=== PATIENT | male | born 1945 | race Caucasian/White ===

== ENCOUNTER 2019-12-14 20:26 | Emergency (ER) | payer OTHER ==
[2019-12-14 20:49] VITALS: TEMP 97.2; BMI 24.3
--- NOTE | 2019-12-14 21:37 | PDOC ---
History of Present Illness - General Chief Complaint: Alcohol intoxication Stated Complaint: INTOX Time Seen by Provider: 12/14/19 21:36 - History of Present Illness Initial Comments: 12/14/19 22:02 74 yo F no PMH (does not see doctors), presenting with alcohol intoxication. Patient was lying on the ground and a bystander called EMS. Reports that he had drank his usual 7 shots of cognac and couldn't get up because he was drunk. Patient denies any complaints. Specifically denies CP, SOB, abd pain, fevers/ chills, AUGUSTINE, N/V. Past History - Past Medical History Allergies/Adverse Reactions: Allergies Allergy/AdvReac Type Severity Reaction Status Date / Time No Known Allergies Allergy Verified 12/14/19 23:34 COPD: No Other medical history: etoh - Psycho Social/Smoking Cessation Hx Smoking History: Unknown if ever smoked Hx Alcohol Use: Yes (currenlty intoxicated) Review of Systems - Review of Systems Comments:: 12/14/19 22:06 GENERAL/CONSTITUTIONAL: denies fever, chills, diaphoresis, generalized weakness , malaise, loss of appetite, weight change HEAD, EYES, EARS, NOSE AND THROAT: endorses sinus congestion. Denies rhinorrhea , nasal congestion, throat pain, throat swelling, difficulty swallowing, mouth swelling, ear pain, eye pain, visual changes NEUROLOGIC: denies headache, focal weakness or paresthesias, dizziness, unsteady gait, seizure, mental status changes, bladder or bowel incontinence CARDIOVASCULAR: denies chest pain, syncope, palpitations, irregular heart rate, lightheadedness, peripheral edema RESPIRATORY: denies cough, shortness of breath, dyspnea with exertion, orthopnea , wheezing, stridor, hemoptysis GASTROINTESTINAL: denies abdominal pain, abdominal distension, nausea, vomiting , diarrhea, constipation, melena, hematochezia GENITOURINARY: denies dysuria, frequency, urgency, hesitancy, hematuria, flank pain, genital pain MUSCULOSKELETAL: denies myalgia, arthralgia, joint swelling, back pain, neck pain SKIN: denies rash, itching, pallor HEMATOLOGIC/IMMUNOLOGIC: denies easy bleeding, easy bruising, lymphadenopathy, frequent infections ENDOCRINE: denies unexplained weight gain, unexplained weight loss, heat intolerance, cold intolerance PSYCHIATRIC: denies anxiety, depression, suicidal or homicidal ideation, hallucinations *Physical Exam - Vital Signs Last Vital Signs Temp Pulse Resp BP Pulse Ox 97.2 F L 84 18 116/72 12/14/19 20:44 12/14/19 20:44 12/14/19 20:44 12/14/19 20:44 - Physical Exam 12/14/19 22:11 Gen: well-developed, well-nourished, appears clinically intoxicated Neuro: AAOX4, CN II-XII intact, FTN intact, EOMI, PERRLA, 5/5 strength, SILT HEENT: atraumatic, normocephalic. Anicteric. No jaundice. Neck: trachea midline, supple CV: regular rate, regular rhythm, no murmurs, rubs, or gallops Pulm: CTA b/l, no wheezing Abd: soft, non-distended, non-tender MSK: full ROM, intact pulses Extr: no edema, no deformities Skin: warm, dry Medical Decision Making - Medical Decision Making 12/14/19 22:04 Patient clinically intoxicated. Will get head CT and cervical CT r/o trauma. 12/14/19 23:[address] without acute pathology, has sinusitis. Likely dc. Discharge - Discharge Information Problems reviewed: Yes Clinical Impression/Diagnosis: Alcohol intoxication Qualifiers: Complication of substance-induced condition: uncomplicated Qualified Code(s): F10.920 - Alcohol use, unspecified with intoxication, uncomplicated Condition: Stable Disposition: HOME - Follow up/Referral - Patient Discharge Instructions Patient Printed Discharge Instructions: DI for Alcohol Abuse Additional Instructions: You were seen in the ER for alcohol intoxication. Your head CT and neck CT were negative - no broken bones in your neck. Please follow up with your primary care provider as soon as possible, in the next 2-3 days. Return to the ER if you develop weakness, tremors, confusion, chest pain, or trouble breathing. - Post Discharge Activity
--- NOTE | 2019-12-14 22:02 | PDOC ---
Attending Attestation - Resident Resident Name: Jerrod Díaz - ED Attending Attestation I have performed the following: I have examined & evaluated the patient, The case was reviewed & discussed with the resident, I agree w/resident's findings & plan - HPI HPI: 12/15/19 23:17 Pt comes with alcohol intox. - Physicial Exam PE: 12/15/19 20:10 Agree with resident exam - Medical Decision Making 12/15/19 03:26 Patient Name: ROSA HERNANDEZ PRELIMINARY REPORT FROM [facility] EXAM: CT brain without contrast DATE: 2019-12-14 22:32:57 IMAGES: 258 HISTORY: Alcohol intoxication IMPRESSION: Intracranial hemorrhage: None. Mass effect: None. Brain parenchyma: No acute process seen. Nasal bone fracture deformity, possibly old. Probable chronic sinusitis. 12/15/19 03:27 Patient Name: ROSA HERNANDEZ PRELIMINARY REPORT FROM [facility] EXAM: CT cervical spine without contrast DATE: 2019-12-14 22:24:38 IMAGES: 284 HISTORY: alcohol IMPRESSION: Subluxations: None. Acute fractures: None. Other findings: Nonspecific ground glass opacities at lung apices. Diffuse degenerative changes seen, with multilevel foraminal narrowing, osteophytes, and disc narrowing. Nonspecific thyroid nodules bilateral.
[2019-12-14] MEDS ORDERED: FOLIC ACID INJECTION - 1 MG, THIAMINE HCL 100 MG, MULTIVIT INJECTION ADULT 10 ML in SOD... IVPB ONE (23:23)
--- NOTE | 2019-12-15 01:45 | PDOC ---
*Physical Exam - Vital Signs Last Vital Signs Temp Pulse Resp BP Pulse Ox 97.2 F L 84 18 116/72 12/14/19 20:44 12/14/19 20:44 12/14/19 20:44 12/14/19 20:44 Medical Decision Making - Medical Decision Making Sign out received from Dr. Díaz. 74M w/no known PMH (not following with physicians) p/w EtOH intoxication found down. Awake, alert, intoxicated. Not interested in detox/rehab at this time. Pending: CT head/cervical spine read Clinical sobriety Dispo: Discharge 12/15/19 01:45 CT head - negative CT cervical spine - negative 12/15/19 05:19 On reassessment, Mr. Herrera is sleeping comfortably. Per nurse he was able to ambulate without assistance to restroom. Plan for AM discharge. 12/15/19 06:34 Clinically sober on reassessment. Ambulating easily without assistance, speaking full sentences, fully alert and oriented. Plan for discharge with PCP follow up. Discharge - Discharge Information Problems reviewed: Yes Clinical Impression/Diagnosis: Alcohol intoxication Qualifiers: Complication of substance-induced condition: uncomplicated Qualified Code(s): F10.920 - Alcohol use, unspecified with intoxication, uncomplicated Condition: Stable Disposition: HOME - Admission No - Follow up/Referral - Patient Discharge Instructions Patient Printed Discharge Instructions: DI for Alcohol Abuse Additional Instructions: You were seen in the ER for alcohol intoxication. Your head CT and neck CT were negative - no broken bones in your neck. Please follow up with your primary care provider as soon as possible, in the next 2-3 days. Return to the ER if you develop weakness, tremors, confusion, chest pain, or trouble breathing. - Post Discharge Activity
[2019-12-15 06:20] VITALS: BP 128/74; PULSE 88
== END 2019-12-15 06:21 | disposition home or self-care (01) ==
LOC: JER 20:26
PROC: 3E033GC Introduction of Other Therapeutic Substance into Peripheral Vein, Percutaneous Approach (ICD-10-PCS; principal; 2019-12-14)
DX: F10.920 Alcohol use, unspecified with intoxication, uncomplicated (principal)
CPT/HCPCS: 70450-TC; 72125-TC; 96365; 96366; 99285-25; J7030

== ENCOUNTER 2020-07-18 20:50 | Emergency (ER) | payer OTHER, BC ==
[2020-07-18 21:01] VITALS: BP 99/67; PULSE 70; TEMP 98.5; BMI 28.0
--- NOTE | 2020-07-18 21:11 | PDOC ---
History of Present Illness - General Chief Complaint: Alcohol intoxication Stated Complaint: FALL/ALCOHOL INTOXICATION Time Seen by Provider: 07/18/20 21:10 History Source: Patient Exam Limitations: No Limitations - History of Present Illness Initial Comments: 07/18/20 21:40 74M with PMH of alcohol abuse presents to the ED via EMS, but the pt was unsure why he was in the ED. He had no complaints. Denied headache, vision changes, numbness/tingling/weakness, nvdc, cp, sob. PMH: as in HPI SH: see below Meds: none Allergies: NKDA Tob/Etoh/Rec drugs: 4-5 drinks of vodka daily, denies tobacco, illicits ROS GENERAL/CONSTITUTIONAL: No fever or chills. No weakness. HEENT: No change in vision. No ear pain or discharge. No sore throat. CARDIOVASCULAR: No chest pain or shortness of breath RESPIRATORY: No cough, wheezing, or hemoptysis. GASTROINTESTINAL: No nausea, vomiting, diarrhea or constipation. GENITOURINARY: No dysuria, frequency, or change in urination. MUSCULOSKELETAL: No joint or muscle swelling or pain. No neck or back pain. SKIN: No rash NEUROLOGIC: No headache, vertigo, loss of consciousness, or change in strength/sensation. ENDOCRINE: No increased thirst. No abnormal weight change HEMATOLOGIC/LYMPHATIC: No anemia, easy bleeding, or history of blood clots. ALLERGIC/IMMUNOLOGIC: No hives or skin allergy. PE GENERAL: Awake, alert, and fully oriented; no acute distress HEAD: abrasion to left occipital region, no laceration EYES: PERRLA, EOMI, sclera anicteric, conjunctiva clear ENT: Auricles normal inspection, hearing grossly normal, nares patent, moist mucosa, oropharynx clear without exudates. NECK: Normal ROM, supple, no LAD, JVD, or masses HEART: Regular rate and rhythm, normal S1/S2, no murmurs, rubs or gallops, dilan pheral pulses normal and equal bilaterally. LUNGS: No distress, speaks full sentences, clear to auscultation bilaterally ABDOMEN: Soft, nontender. No guarding, no rebound. No masses EXTREMITIES: Normal inspection, Normal range of motion, no edema. No clubbing or cyanosis. NEUROLOGICAL: CNII-XII grossly intact (pt wouldn't comply entirely w/ CN testing). Normal speech, no focal sensorimotor deficits. Pt not compliant with cerebellar testing. SKIN: Warm, Dry, normal turgor, no rashes or lesions noted Assessment and Plan 1. r/o intracranial hemorrhage and c-spine fracture with head and c-spine CT 2. tetanus booster Fantasma Pelletier, PGY1 Emergency Medicine Past History - Medical History Allergies/Adverse Reactions: Allergies Allergy/AdvReac Type Severity Reaction Status Date / Time No Known Allergies Allergy Verified 07/18/20 20:58 COPD: No - Psycho-Social/Smoking History Smoking History: Unknown if ever smoked Have you smoked in the past 12 months: No Information on smoking cessation initiated: No - Substance Abuse Hx (Audit-C & DAST Scrn) How often the patient has a drink containing alcohol: 4 0r more times/wk Number of drinks the patient has on a typical day: 5 or 6 How often the patient has six or more drinks on one occasion: Monthly Score: In Men: 4 or > Positive; In Women: 3 or > Positive: 8 Screen Result (Pos requires Nsg. Audit-10AR): Positive In the last yr the pt used illegal drug/Rx for NonMed reason: No Score: Yes response is considered Positive: 0 Screen Result (Positive result requires Nsg. DAST-10): Negative *Physical Exam - Vital Signs Last Vital Signs Temp Pulse Resp BP Pulse Ox 98.5 F 70 20 99/67 96 07/18/20 20:59 07/18/20 20:59 07/18/20 20:59 07/18/20 20:59 07/18/20 20:59 Medical Decision Making - Medical Decision Making 07/18/20 23:19 74M with PMH of alcohol abuse presents to the intoxicated ED via EMS, apparently after a fall, which the patient had no recollection of. He had mild head trauma, and would not fully comply with neurological exam but no focal deficits were noted on exam. -> Will get head and c-spine CT to eval for intracranial hemorrhage or c-spine injury. Given tetanus shot and thiamine. -> d/c home if normal CT and pt is able to ambulate 07/18/20 23:29 Signed out to night team. Discharge - Discharge Information Problems reviewed: Yes Clinical Impression/Diagnosis: Alcohol intoxication Qualifiers: Complication of substance-induced condition: with unspecified complication Qualified Code(s): F10.929 - Alcohol use, unspecified with intoxication, unspecified - Follow up/Referral - Patient Discharge Instructions - Post Discharge Activity
[2020-07-18] MEDS ORDERED: DIPHTH,PERTUSS(ACELL),TET 0.5 ML DISP.SYRIN IM ONE ×2 (22:03→22:35)
--- NOTE | 2020-07-18 22:58 | PDOC ---
Documentation entered by Daily Cope SCRIBE, acting as scribe for Derrick Zepeda MD. Derrick Zepeda MD: This documentation has been prepared by the scribeAnatoliy Ana, SCRIBE, under my direction and personally reviewed by me in its entirety. I confirm that the documentation accurately reflects all work, treatment, procedures, and medical decision making performed by me. Attending Attestation - Resident Resident Name: Fantasma Pelletier - ED Attending Attestation I have performed the following: I have examined & evaluated the patient, The case was reviewed & discussed with the resident, I agree w/resident's findings & plan, Exceptions are as noted - HPI HPI: 07/18/20 21:24 Patient is a 74 year old male with a significant past medical history of alcohol abuse who presents to the ED with Acute alcohol intoxication and minor head trauma. Patient denies nausea/vomiting/weakness/paresthesias. Patient drinks every day. Patient denies: Allergies: NKDA 07/18/20 22:55 - Physicial Exam PE: 07/18/20 22:55 EXAMINATION CONSTITUTIONAL: Awake, alert, +AOB; HEAD: Normocephalic; + minimal occipital abrasions; no crepitu, no step offs EYES: PERRL; EOM intact ENMT: External appears normal; normal oropharynx NECK: Supple; non-tender; no cervical lymphadenopathy CARD: Normal S1, S2; no murmurs, rubs, or gallops RESP: Normal chest excursion with respiration; breath sounds clear and equal bilaterally; no wheezes, rhonchi, or rales ABD: Soft, non-distended; non-tender; no palpable organomegaly, no palpable hernias EXT: Normal ROM in all four extremities; non-tender to palpation; distal pulses intact SKIN: Warm, dry, no rash NEURO: cn ii-xii grossly intact, motot: 5/5x4. gait-ataxic - Medical Decision Making 07/18/20 22:57 Patient 74-year-old male with history of alcohol abuse who presents with acute alcohol intoxication and minor scalp abrasion. Patient is afebrile and nontoxic-appearing, ambulating with an ataxic gait. Will obtain CT of head and cervical spine. Will administer MVI, thiamine and folic acid. Will reassess. Likely discharge upon sobriety. Discharge - Discharge Information Problems reviewed: Yes Clinical Impression/Diagnosis: Alcohol intoxication Qualifiers: Complication of substance-induced condition: with unspecified complication Qualified Code(s): F10.929 - Alcohol use, unspecified with intoxication, unspecified Head injury, closed Qualifiers: Encounter type: initial encounter Qualified Code(s): S09.90XA - Unspecified injury of head, initial encounter - Follow up/Referral - Patient Discharge Instructions - Post Discharge Activity
[2020-07-18] MEDS ORDERED: THIAMINE HCL 200 MG/2 ML VIAL IM ONE (23:03)
[2020-07-19] MEDS ORDERED: THIAMINE HCL 200 MG/2 ML VIAL ONE (00:13)
== END 2020-07-19 00:47 | disposition home or self-care (01) ==
LOC: JER 20:50
PROC: 3E0234Z Introduction of Serum, Toxoid and Vaccine into Muscle, Percutaneous Approach (ICD-10-PCS; principal; 2020-07-18)
PROC: 3E023GC Introduction of Other Therapeutic Substance into Muscle, Percutaneous Approach (ICD-10-PCS; 2020-07-18)
DX: F10.929 Alcohol use, unspecified with intoxication, unspecified (principal); S09.90XA Unspecified injury of head, initial encounter
CPT/HCPCS: 70450-TC; 72125-TC; 90715; 99284-25

== ENCOUNTER 2020-12-21 13:13 | Inpatient (IN) | payer OTHER, BC ==
[2020-12-21 13:48] VITALS: BMI 24.6
[2020-12-21] MEDS: SODIUM CHLORIDE 1,000 ML IV SCH (14:28)
[2020-12-21 15:03] LABS: BASO % 0.5 % (0-2.0); EOS % 0.4 % (0-4.5); HEMATOCRIT 23.2 % (35.4-49); HEMOGLOBIN 7.9 GM/dL (11.7-16.9); LYMPH % 22.1 % (8-40); MCH 28.7 pg (25.7-33.7); MEAN CELL VOLUME 84.3 fl (80-96); MEAN PLT VOLUME 6.9 fl (7.5-11.1); MONO % 6.6 % (3.8-10.2); NEUT % 70.4 % (42.8-82.8); PLATELET COUNT 208 K/MM3 (134-434); RBC 2.76 M/mm3 (4.00-5.60); RDW 17.5 % (11.9-15.9); WHITE BLOOD COUNT 6.4 K/mm3 (4.0-10.0)
[2020-12-21 15:11] LABS: INR 1.03 (0.83-1.09); PROTHROMBIN TIME (PATIENT) 12.4 SEC (9.7-13.0)
[2020-12-21 15:13] LABS: ACTIVATED PTT 36.9 SECONDS (25.2-36.5)
[2020-12-21 15:47] LABS: CHLORIDE 95 mmol/L (98-107); POTASSIUM 4.4 mmol/L (3.5-5.1); SODIUM 129 mmol/L (136-145)
[2020-12-21 15:50] LABS: ALBUMIN 2.8 g/dl (3.4-5.0); ANION GAP 6 MMOL/L (8-16); BLOOD UREA NITROGEN 30.6 mg/dL (7-18); CALCIUM 8.2 mg/dL (8.5-10.1); CO2 29 mmol/L (21-32)
[2020-12-21 15:51] LABS: GLUCOSE,RANDOM 116 mg/dL (74-106)
[2020-12-21 15:53] LABS: CHOLESTEROL 152 mg/dL (50-200); SGOT/AST 15 U/L (15-37); SGPT/ALT 13 U/L (13-61)
[2020-12-21 15:54] LABS: CREATININE 1.6 mg/dL (0.55-1.3); LDL CHOLESTEROL (ONLY SJRH) 86 mg/dL (5-100); TRIGLYCERIDES 59 mg/dL (0-150)
[2020-12-21 15:55] LABS: BILIRUBIN,TOTAL 0.3 mg/dL (0.2-1); HDL CHOLESTEROL 54 mg/dL (40-60); TOT PROT 6.2 g/dl (6.4-8.2)
[2020-12-21 15:56] LABS: ALK PHOS 92 U/L (45-117)
[2020-12-21 16:40] LABS: PH,URINE 6.5 (5.0-8.0); URINE APPEARANCE CLEAR; URINE BILIRUBIN NEGATIVE (NEGATIVE); URINE COLOR YELLOW; URINE GLUCOSE (UA) NEGATIVE (NEGATIVE); URINE KETONE NEGATIVE (NEGATIVE); URINE LEUK ESTERASE NEGATIVE (NEGATIVE); URINE NITRITE NEGATIVE (NEGATIVE); URINE PROTEIN NEGATIVE (NEGATIVE); URINE UROBILINOGEN 0.2 mg/dL (0.2-1.0)
[2020-12-21 17:30] LABS: EPI CELLS 11 /uL (0-25.1); HYALINE CASTS 1 /uL (0-3.1); URINE BACTERIA 62 /uL (0-1359); URINE RBC 48 /uL (0-23.9); URINE WBC 6 /uL (0-25.8)
[2020-12-22 09:20] LABS: BASO % 0.6 % (0-2.0); EOS % 1.3 % (0-4.5); HEMATOCRIT 23.2 % (35.4-49); HEMOGLOBIN 7.9 GM/dL (11.7-16.9); LYMPH % 34.3 % (8-40); MCH 28.7 pg (25.7-33.7); MCHC 34.3 g/dl (32.0-35.9); MEAN CELL VOLUME 83.6 fl (80-96); MEAN PLT VOLUME 6.7 fl (7.5-11.1); MONO % 10.7 % (3.8-10.2); NEUT % 53.1 % (42.8-82.8); PLATELET COUNT 207 K/MM3 (134-434); RBC 2.77 M/mm3 (4.00-5.60); WHITE BLOOD COUNT 5.5 K/mm3 (4.0-10.0)
[2020-12-22 09:30] LABS: POTASSIUM 4.2 mmol/L (3.5-5.1)
[2020-12-22 09:38] LABS: ALBUMIN 2.8 g/dl (3.4-5.0); BLOOD UREA NITROGEN 27.9 mg/dL (7-18); CALCIUM 8.7 mg/dL (8.5-10.1)
[2020-12-22 09:42] LABS: CREATININE 1.5 mg/dL (0.55-1.3)
[2020-12-22 09:43] LABS: BILIRUBIN,TOTAL 0.3 mg/dL (0.2-1); TOT PROT 6.1 g/dl (6.4-8.2)
[2020-12-22] MEDS: SODIUM CHLORIDE 1,000 ML IV SCH (14:22)
[2020-12-23 08:54] LABS: BASO % 0.9 % (0-2.0); EOS % 1.5 % (0-4.5); HEMATOCRIT 22.2 % (35.4-49); HEMOGLOBIN 7.6 GM/dL (11.7-16.9); LYMPH % 36.5 % (8-40); MCHC 33.9 g/dl (32.0-35.9); MEAN CELL VOLUME 85.4 fl (80-96); MONO % 8.8 % (3.8-10.2); NEUT % 52.3 % (42.8-82.8); PLATELET COUNT 206 K/MM3 (134-434); RBC 2.61 M/mm3 (4.00-5.60); RDW 18.2 % (11.9-15.9); WHITE BLOOD COUNT 5.6 K/mm3 (4.0-10.0)
[2020-12-23] MEDS ORDERED: ACETAMINOPHEN 325 MG TABLET (FP) PO PRN (08:56)
[2020-12-23 09:16] LABS: POTASSIUM 4.1 mmol/L (3.5-5.1)
[2020-12-23 09:24] LABS: ALBUMIN 2.6 g/dl (3.4-5.0)
[2020-12-23 09:26] LABS: BLOOD UREA NITROGEN 28.6 mg/dL (7-18); CALCIUM 8.1 mg/dL (8.5-10.1)
[2020-12-23 09:29] LABS: PHOSPHOROUS 4.4 mg/dL (2.5-4.9)
[2020-12-23 09:30] LABS: BILIRUBIN,TOTAL 0.3 mg/dL (0.2-1); CREATININE 1.4 mg/dL (0.55-1.3); TOT PROT 5.5 g/dl (6.4-8.2)
[2020-12-23] MEDS ORDERED: HEPARIN NA (PORCINE) 5,000 UNITS/ML 1ML VIAL SQ SCH (10:00)
[2020-12-23 12:45] VITALS: TEMP 98.4
[2020-12-23 14:16] VITALS: BP 107/68; PULSE 74
== END 2020-12-23 14:40 | disposition home or self-care (01) | DRG 69 ==
LOC: JER 13:13 → JERBED 16:30 → J4W 12-22 20:18
PROVIDERS: ADMIT Internal Medicine; ATTEND Family Medicine
DX: G45.9 Transient cerebral ischemic attack, unspecified (principal); E87.1 Hypo-osmolality and hyponatremia; N17.9 Acute kidney failure, unspecified; M46.26 Osteomyelitis of vertebra, lumbar region; G82.20 Paraplegia, unspecified; D64.9 Anemia, unspecified; R53.1 Weakness; F10.10 Alcohol abuse, uncomplicated; N40.0 Benign prostatic hyperplasia without lower urinary tract symptoms; I44.0 Atrioventricular block, first degree; Z20.822 Contact with and (suspected) exposure to COVID-19
CPT/HCPCS: 36415; 70450-TC; 71045-TC-FY; 76775-TC; 80053; 80061; 81003; 82272; 82550; 82565; 82607; 82962; 83540; 83550; 83721; 83930; 83935; 84100; 84156; 84300; 84425; 84443; 84484; 85025; 85610; 85651; 85730; 86140; 86780; 86850; 86900; 86901; 93005; 93010; 97116-GP; 97161-GP; 97163-GP; 99285-25; C9803; J1644; U0003

== ENCOUNTER 2021-02-08 18:19 | Emergency (ER) | payer OTHER, BC ==
[2021-02-08 18:29] VITALS: BP 141/78; PULSE 66; TEMP 98.2; BMI 26.5
== END 2021-02-09 00:02 | disposition left against medical advice (07) ==
LOC: JERFT 18:19
DX: S32.000A Wedge compression fracture of unspecified lumbar vertebra, initial encounter for closed fracture (principal)
CPT/HCPCS: 72131-TC; 99284-25

== ENCOUNTER 2021-10-01 20:20 | Inpatient (IN) | payer OTHER, BC ==
[2021-10-01 20:52] VITALS: BMI 25.8
[2021-10-01 22:23] LABS: BASO % 1.1 % (0-2.0); EOS % 1.4 % (0-4.5); HEMATOCRIT 33.9 % (35.4-49); HEMOGLOBIN 11.6 GM/dL (11.7-16.9); LYMPH % 25.2 % (8-40); MCH 32.8 pg (25.7-33.7); MCHC 34.1 g/dl (32.0-35.9); MEAN CELL VOLUME 96.1 fl (80-96); MEAN PLT VOLUME 6.5 fl (7.5-11.1); MONO % 7.8 % (3.8-10.2); NEUT % 64.5 % (42.8-82.8); PLATELET COUNT 204 10^3/uL (134-434); RBC 3.53 M/mm3 (4.00-5.60); RDW 13.2 % (11.9-15.9); WHITE BLOOD COUNT 7.1 K/mm3 (4.0-10.0)
[2021-10-01 22:30] LABS: INR 0.91 (0.83-1.09); PROTHROMBIN TIME (PATIENT) 10.6 SEC (9.7-13.0)
[2021-10-01 22:33] LABS: ACTIVATED PTT 29.2 SECONDS (25.2-36.5)
[2021-10-01 22:44] LABS: MAGNESIUM 2.3 mg/dL (1.8-2.4)
[2021-10-01] MEDS ORDERED: LACTATED RINGERS SOLUTION 1000 ML INFUS.BAG IV ONE (23:18)
[2021-10-01 23:28] LABS: ALBUMIN 3.6 g/dl (3.4-5.0); BLOOD UREA NITROGEN 21.3 mg/dL (7-18); CALCIUM 8.6 mg/dL (8.5-10.1)
[2021-10-01 23:31] LABS: CREATININE 1.2 mg/dL (0.55-1.3)
[2021-10-01 23:33] LABS: BILIRUBIN,TOTAL 0.4 mg/dL (0.2-1)
[2021-10-02] MEDS ORDERED: DIPHTH,PERTUSS(ACELL),TET 0.5 ML DISP.SYRIN IM ONE ×2 (00:16→01:08)
[2021-10-02] MEDS ORDERED: LACTATED RINGERS SOLUTION 1,000 ML/1,000 ML INFUS.BAG IV SCH (02:45)
[2021-10-02 06:26] VITALS: PULSE 77; TEMP 97.8
[2021-10-02] MEDS ORDERED: amLODIPine BESYLATE 5 MG TABLET (FP) PO ONE (06:26)
[2021-10-02] MEDS ORDERED: amLODIPine BESYLATE 5 MG TABLET (FP) ONE (06:52)
[2021-10-02 07:11] VITALS: BP 184/100
[2021-10-02] MEDS ORDERED: FOLIC ACID 1 MG TABLET (FP) ONE (08:48)
[2021-10-02] MEDS ORDERED: THIAMINE HCL 100 MG TABLET (FP) ONE (08:48)
[2021-10-02] MEDS ORDERED: FOLIC ACID 1 MG TABLET (FP) PO SCH (10:00)
[2021-10-02] MEDS ORDERED: THIAMINE HCL 100 MG TABLET (FP) PO SCH (10:00)
[2021-10-02] MEDS ORDERED: CYANOCOBALAMIN (VITAMIN B-12) 100 MCG TABLET PO SCH (10:00)
[2021-10-02] MEDS ORDERED: ASPIRIN COATED 81 MG TABLET.EC PO SCH (11:30)
[2021-10-02] MEDS ORDERED: amLODIPine BESYLATE 2.5 MG TABLET (FP) PO ONE (14:51)
[2021-10-02] MEDS ORDERED: MIRTAZAPINE 15 MG TABLET (FP) PO SCH (22:00)
== END 2021-10-02 12:00 | disposition left against medical advice (07) | DRG 894 ==
LOC: JER 20:20 → JERBED 10-02 02:01
PROVIDERS: ATTEND Family Medicine
DX: F10.239 Alcohol dependence with withdrawal, unspecified (principal); F10.220 Alcohol dependence with intoxication, uncomplicated; E86.0 Dehydration; S00.81XA Abrasion of other part of head, initial encounter; R55 Syncope and collapse; W19.XXXA Unspecified fall, initial encounter; Y92.480 Sidewalk as the place of occurrence of the external cause; Y93.9 Activity, unspecified; Y99.9 Unspecified external cause status
CPT/HCPCS: 36415; 70450-TC; 70486-TC; 71045-TC-FY; 72125-TC; 80053; 80307; 83735; 83880; 84484; 85025; 85610; 85730; 90715; 93005; 93010; 99285-25; C9803; U0003; U0005